=== PATIENT | female | born 1975 | race Caucasian/White ===

== ENCOUNTER 2016-07-25 15:14 | Emergency (ER) | payer MEDICAID, OTHER ==
[2016-07-25 15:20] VITALS: BP 142/79
[2016-07-25] MEDS ORDERED: KETOROLAC TROMETHAMINE 60 MG/2 ML VIAL IM ONE ×2 (15:27→15:30)
--- NOTE | 2016-07-25 15:43 | ERNOTE ---
ENT HPI Date of Service: 07/25/16 Presenting Symptoms: dental pain Time Seen by Provider: 07/25/16 15:18 Source: patient Exam Limitations: no limitations - Immun/Allergies/Home Medications Immunizations: IMMUNIZATION HX Immunizations Up to Date Yes History of Influenza Vaccine Yes Hx Pneumococcal Vaccination No Allergies/Adverse Reactions: Allergies Allergy/AdvReac Type Severity Reaction Status Date / Time No Known Allergies Allergy Verified 07/25/16 15:20 Home Medications: HOME MEDICATIONS FLUoxetine HCL [Prozac] 40 mg PO DAILY 03/02/16 [Last Taken Unknown] - History of Present Illness Narrative: 40-year-old female presenting to the emergency room for dental pain. Patient states she has pain on the right side and the left side. Patient states that she is going to the dentist on . Patient states that she ran out of pain medication. Date (Duration): 07/25/16 Severity: Present: mild ENT Location: Present: dental Prearrival Treatment: Present: over the counter meds - took 800mg of motrin at 8am, prescription meds Modifying Factors - Improves: Reports: medication Modifying Factors - Worsens: Reports: activity Associated Symptoms - ENT: Reports: tooth pain. Denies: fever, poor fluid intake, voice change, sore throat, nasal congestion/drainage, facial pain/ swelling Prior Treament: Reports: treated by physician - 07/19 given abx at [facility] and pain medication Review of Systems - Review of Systems Constitutional: Present: See HPI. Absent: fever, chills EYE: Present: no symptoms reported ENT: Present: See HPI. Absent: ear pain, nose pain, nasal drainage, sore throat , throat swelling Respiratory: Present: no symptoms reported Cardiology: Present: no symptoms reported Gastrointestinal/Abdominal: Present: no symptoms reported Genitourinary: Present: no symptoms reported Musculoskeletal: Present: no symptoms reported Skin: Present: no symptoms reported Neurological: Present: no symptoms reported Endocrine: Present: no symptoms reported Hematologic/Lymphatic: Present: no symptoms reported Psych: Present: no symptoms reported - Patient's Past Medical History Patient History - Medical: Anxiety, Depression, Migraines Patient History - Cardiac/Respiratory: No pertinent hx Patient History - Cancer: No Hx of Cancer Patient History - Surgical Procedures: , Tubal Ligation, Other - Social History Living Situations: other Abuse History: No History of abuse Psych History: Hx of Anxiety, Hx of Depression Smoking Status: Current every day smoker Have you smoked in the past 12 months: Yes Alcohol Use: none Drug Use: none - Immunizations Immunizations Up to Date: Yes Hx Pneumococcal Vaccination: No History of Influenza Vaccine: Yes Physical Exam - Physical Exam Narrative: when this provider entered room patient was holding the left side of her face. patient has dental caries on right back molar. no reddness or swelling observed. General Appearance: Present: wd/wn, alert, no apparent distress Eye Exam: Normal inspection: bilateral Ears, Nose, Throat: Present: normal ENT inspection. Absent: nasal congestion, sinus pain/drainage, pharyngeal erythema, pharyngeal swelling, tonsillar exudate , tonsillar swelling Neck: Present: normal inspection, full range of motion Respiratory: Present: no respiratory distress Cardiovascular/Chest: Present: regular rate, rhythm Gastrointestinal/Abdominal: Present: normal bowel sounds Neurological Exam: Present: alert, oriented, normal mood/affect Skin Exam: Present: normal color Lymphatic Exam: Present: no adenopathy ED Progress - Vital Signs Patient's Vital Signs:: I have reviewed the patient's vital signs. Vital Signs: Vital Signs 07/25/16 15:17 Temperature 36.1 C L Pulse Rate 81 Respiratory 14 Rate Blood Pressure 142/79 O2 Sat by Pulse 100 Oximetry WNL - Progress/Reassessment Chief Complaint: Dental Problem Progress:: Improved Plan - Plan Plan: FOOD ANALYST was checked. Patient was prescribed 20 tabs of Tramadol 5 days ago. Patient denied this and changed her recollection of the pain medication prescription after she was shown her FOOD ANALYST report. Patient has had several pain medication prescriptions with in the last 30 days that are by different prescribers. Patient stated she completed an antibiotic course 2 days ago and that she has a dental apt on . patient encouraged to go to her scheduled apt and to take her pain medication and OTC pain medication as directed. Departure Clinical Impression: Tooth caries - Departure Disposition: Home Follow Up Needed Condition: Stable Instructions: Dental Care and Dentist Visits, Dental Caries, Diet and Dental Disease Additional Instructions: Follow up with your dental appointment on . Continue to take PRN pain medications as prescribed. Return to the emergency room if symptoms persist or you develop fever, signs and symptoms of infection or symptoms are not able to be controlled with your prescribed medication. Referrals: Annie Guevara ARNP [Primary Care Provider] -
== END 2016-07-25 15:48 | disposition home or self-care (01) ==
LOC: ER 15:14
DX: K02.9 Dental caries, unspecified (principal); Z72.0 Tobacco use; F41.8 Other specified anxiety disorders

== ENCOUNTER 2016-08-12 16:29 | Emergency (ER) | payer OTHER ==
[2016-08-12] MEDS ORDERED: METHYLPREDNISOLONE SOD SUCC/PF 40 MG/ML VIAL IM ONE (18:04)
[2016-08-12] MEDS ORDERED: hydrOXYzine PAMOATE 25 MG CAPSULE PO ONE (18:04)
[2016-08-12] MEDS ORDERED: LORATADINE 10 MG TABLET PO ONE (18:05)
[2016-08-12] MEDS ORDERED: FAMOTIDINE 20 MG TABLET PO ONE (18:07)
--- NOTE | 2016-08-12 18:09 | ERNOTE ---
Integumentary HPI - Narrative Date of Service: 08/12/16 - General Presenting Symptoms: insect bite, other - pruritis, history of hives--resolved Time Seen by Provider: 08/12/16 17:39 Source: patient Exam Limitations: no limitations - Immun/Allergies/Home Medications Immunizations: IMMUNIZATION HX Immunizations Up to Date Yes History of Influenza Vaccine Yes Hx Pneumococcal Vaccination No Allergies/Adverse Reactions: Allergies Allergy/AdvReac Type Severity Reaction Status Date / Time No Known Allergies Allergy Verified 07/25/16 15:20 Home Medications: HOME MEDICATIONS FLUoxetine HCL [Prozac] 40 mg PO DAILY 03/02/16 [Last Taken Unknown] EPINEPHrine [Epipen] 0.3 mg IM PRN #1 disp.syrin 08/12/16 [Last Taken Unknown] Loratadine [Claritin] 10 mg PO DAILY #30 tab 08/12/16 [Last Taken Unknown] Ranitidine HCl [Zantac] 150 mg PO BID #60 tab 08/12/16 [Last Taken Unknown] diphenhydrAMINE HCL [Benadryl] 50 mg PO 08/12/16 [Last Taken 08/12/16 15:50] predniSONE [Prednisone] 20 mg PO DAILY #5 tablet 08/12/16 [Last Taken Unknown] - Pain Pain Score: 0 - History of Present Illness Narrative: Patient is a 40 year old female who presents to the ED with complaints of rash. Patient states sudden onset of urticaria about 1530 this afternoon with intense pruritus. States she noticed a bug bite posterior patellar region that is raised with white head. Patient states she took Benadryl 50 mg orally 1545 with slight relief. States she is allergic to "everything" and normally carries Epi pen with her but ran out. Upon presentation, continues to itch yet no signs of urticaria. Denies SOB or respiratory difficulty yet complains of scratchy throat. Able to talk in full complete sentences. Date (Duration): 08/12/16 Time (Timing): 15:00 Location: Reports: generalized Quality: Reports: itching Severity: moderate Exposure: Reports: insect bite/spider Modifying Factors - (Improves): Reports: scratching Associated Symptoms: Reports: hives - per history, sore throat. Denies: blisters, rash, petechiae, change in skin texture, edema, fever, flushing, headache, nasal congestion, malaise Review of Systems - Review of Systems Constitutional: Absent: recent illness, fever, chills, diaphoresis, weakness, fatigue, malaise, weight loss EYE: Absent: eye pain, eye discharge, blurred vision, double vision, vision changes ENT: Present: no symptoms reported, sore throat. Absent: ear pain, ear discharge, pulling on ears, nose pain, nose congestion, nasal drainage, throat swelling Respiratory: Present: no symptoms reported. Absent: shortness of breath, cough , orthopnea, wheezing, stridor Cardiology: Absent: chest pain, palpitations, syncope, edema Gastrointestinal/Abdominal: Absent: nausea, vomiting, diarrhea Genitourinary: Present: no symptoms reported Musculoskeletal: Present: no symptoms reported Skin: Absent: rash, dryness Neurological: Present: no symptoms reported Endocrine: Present: no symptoms reported Hematologic/Lymphatic: Present: no symptoms reported Psych: Present: no symptoms reported - Patient's Past Medical History Patient History - Medical: Anxiety, Depression, Migraines Patient History - Cardiac/Respiratory: No pertinent hx Patient History - Cancer: No Hx of Cancer Patient History - Surgical Procedures: , Tubal Ligation, Other - Social History Living Situations: home Abuse History: No History of abuse Psych History: Hx of Anxiety, Hx of Depression Alcohol Use: none Drug Use: none - Immunizations Immunizations Up to Date: Yes Hx Pneumococcal Vaccination: No History of Influenza Vaccine: Yes Physical Exam - Physical Exam General Appearance: Present: wd/wn, alert, no apparent distress Eye Exam: Normal inspection: bilateral, PERRL: bilateral Ears, Nose, Throat: Present: normal ENT inspection, normal pharynx. Absent: nasal congestion, sinus pain/drainage, pharyngeal erythema, pharyngeal swelling , tonsillar exudate, tonsillar swelling, dry mucous membranes Neck: Present: normal inspection, nontender, supple, full range of motion Respiratory: Present: no respiratory distress, normal breath sounds, no accessory muscle use, chest nontender, lungs clear Cardiovascular/Chest: Present: regular rate, rhythm, no murmur, normal peripheral pulses Peripheral Pulses: N=norm/S=strong/W=weak/B=bound/A=absent: Radial (R): Normal, Radial (L): Normal Gastrointestinal/Abdominal: Present: normal bowel sounds, nontender, nondistended, soft, no organomegaly Rectal Exam: Present: deferred Back Exam: Present: normal inspection, normal range of motion, no CVA tenderness , no vertebral tenderness Extremity Exam: Present: normal inspection, non-tender, normal range of motion, no edema Neurological Exam: Present: alert, oriented, normal mood/affect, no motor/ sensory deficits Skin Exam: Present: normal color, warm/dry, other - insect bite behind right knee, raised with white head. Absent: diaphoresis, cyanosis Lymphatic Exam: Present: no adenopathy ED Progress - Vital Signs Patient's Vital Signs:: I have reviewed the patient's vital signs. Vital Signs: Vital Signs 08/12/16 17:32 Temperature 36.3 C L Pulse Rate 82 Respiratory 12 Rate Blood Pressure 119/65 O2 Sat by Pulse 97 Oximetry - Progress/Reassessment Chief Complaint: Rash Progress:: Improved Progress Note-Subjective: 08/12/16 19:03 Patient improved upon discharge. States scratchiness in throat had lessened. States pruritus has lessened as well. Denies SOB or pain Departure Clinical Impression: Pruritus, Systemic reaction to insect sting - Departure Disposition: Home Follow Up Needed Condition: Good Instructions: Pruritus, Insect Bite Additional Instructions: Always carry Epi pen and contact physician for refill when used! Begin Prednisone tomorrow x 3 days. Claritin daily for allergies. Call your provider Sunday for follow up appointment. Return with worsening throat irritation, shortness of breath, difficulty talking or chest pain Referrals: Annie Guevara ARNP [Primary Care Provider] - Prescriptions: EPINEPHrine [Epipen] 0.3 mg IM PRN #1 disp.syrin Loratadine [Claritin] 10 mg PO DAILY #30 tab Ranitidine HCl [Zantac] 150 mg PO BID #60 tab predniSONE [Prednisone] 20 mg PO DAILY #5 tablet
[2016-08-12] MEDS ORDERED: LORATADINE 10 MG TABLET ONE (18:13)
[2016-08-12] MEDS ORDERED: METHYLPREDNISOLONE SOD SUCC/PF 40 MG/ML VIAL ONE (18:13)
[2016-08-12] MEDS ORDERED: FAMOTIDINE 20 MG TABLET ONE (18:13)
[2016-08-12] MEDS ORDERED: hydrOXYzine PAMOATE 25 MG CAPSULE ONE (18:14)
[2016-08-12 20:32] VITALS: BP 110/62
== END 2016-08-12 19:12 | disposition home or self-care (01) ==
LOC: ER 16:29
DX: L29.9 Pruritus, unspecified (principal); T63.481A Toxic effect of venom of other arthropod, accidental (unintentional), initial encounter

== ENCOUNTER 2016-10-08 13:09 | Emergency (ER) | payer OTHER ==
[2016-10-08 13:34] LABS: Hematocrit 37.5 % (37.0-47.0); Hemoglobin 12.5 gm/dL (12.5-16.0); Mean Cell Volume 89.5 fl (78-100); Mean Corpuscular Hemoglobin 29.8 pg (27-31); Mean Corpuscular Hgb Conc 33.3 g/dl (32-36); Mean Platelet Volume 10.5 fl (6.0-9.5); Neutrophil # 6.4 K/mm3 (1.3-6.0); Neutrophil % 71.3 % (42-75.0); Platelet Count 262 K/mm3 (150-450); Red Blood Count 4.19 M/mm3 (4.2-5.4)
[2016-10-08] MEDS ORDERED: IBUPROFEN 600 MG TABLET PO ONE (13:34)
[2016-10-08] MEDS ORDERED: ALBUTEROL SULFATE 2.5 MG/3 ML VIAL.NEB IH ONE (13:34)
[2016-10-08] MEDS ORDERED: ALBUTEROL SULFATE 2.5 MG/0.5 ML VIAL.NEB IH ONE (13:36)
[2016-10-08 13:44] LABS: Prothrombin Time (Patient) 11.4 Seconds (9.4-11.4)
[2016-10-08 13:45] LABS: INR 1.1 INR (0.90-1.10); Partial Thrombolplastin Time 27.1 Seconds (24-32)
--- NOTE | 2016-10-08 13:47 | ERNOTE ---
Chest Pain/Cardiac HPI Chief Complaint: Abdominal Pain Time Seen by Provider: 10/08/16 13:17 Source: patient Exam Limitations: no limitations Immunizations: IMMUNIZATION HX Immunizations Up to Date Yes History of Influenza Vaccine Yes Hx Pneumococcal Vaccination No Allergies/Adverse Reactions: Allergies bee pollen Allergy (Severe, Verified 10/08/16 13:33) Anaphylaxis Home Medications: HOME MEDICATIONS FLUoxetine HCL [Prozac] 40 mg PO DAILY 03/02/16 [Last Taken Unknown] Loratadine [Claritin] 10 mg PO DAILY #30 tab 08/12/16 [Last Taken Unknown] Ranitidine HCl [Zantac] 150 mg PO BID #60 tab 08/12/16 [Last Taken Unknown] diphenhydrAMINE HCL [Benadryl] 50 mg PO 08/12/16 [Last Taken 08/12/16 15:50] Acetaminophen [Extra Strength Non-Aspirin] 1,000 mg PO 10/08/16 [Last Taken 09:30] Albuterol Sulfate [Proair Hfa] 2 puff IH Q4H PRN #1 inhaler 10/08/16 [Last Taken Unknown] Amoxicillin 500 mg PO TID 10/08/16 [Last Taken 10/08/16 09:00] EPINEPHrine [Epipen] 0.3 mg IM PRN PRN 10/08/16 [Last Taken Unknown] Narrative: Patient started to have URI symptoms two days ago, was seen in [place] and started on amoxicillin for pharyngitis, took two doses yesterday and one this morning. Today at 10:00 she started to have lower left chest pain while sitting on the couch, no radiation, no other new associated symptoms. The pain waxes and wanes, worse with movement, deep breath and cough. Date (Duration): 10/08/16 Time (Timing): 10:00 Severity/Quality: moderate, sharp Location: epigastric, left chest Chest Pain Radiation: no radiation Activities at Onset: none, rest Modifying Factors - Worsens: Present: breathing, coughing, movement Nitro Today/Relief: no nitro taken today Aspirin Treatment Today: no aspirin today Prior Treatment: Reports: recently seen, currently on antibiotics Review of Systems - Review of Systems Constitutional: Present: chills. Absent: recent illness, fever ENT: Present: nose congestion, sore throat - able to swallow. Absent: throat swelling Respiratory: Present: shortness of breath, cough Cardiology: Present: chest pain. Absent: palpitations Gastrointestinal/Abdominal: Absent: nausea, vomiting, diarrhea, abdominal pain Genitourinary: Present: no symptoms reported Musculoskeletal: Present: no symptoms reported Skin: Absent: rash Neurological: Present: headache, tingling - both hands. Absent: weakness, numbness - Patient's Past Medical History Patient History - Medical: Anxiety, Depression, GERD, Migraines Patient History - Cardiac/Respiratory: No pertinent hx Patient History - Cancer: No Hx of Cancer Patient History - Surgical Procedures: , Tubal Ligation, Other Patient History - Other: None - Family History Mother Family History - Cardiac/Respiratory: Myocardial Infarction - Social History Living Situations: home Abuse History: No History of abuse Psych History: Hx of Anxiety, Hx of Depression Does anyone smoke in the home?: Yes - Smoking Status: Former smoker Alcohol Use: none Drug Use: none - Immunizations Immunizations Up to Date: Yes Hx Pneumococcal Vaccination: No History of Influenza Vaccine: Yes Physical Exam - Physical Exam General Appearance: Present: wd/wn, alert, no apparent distress, anxious Eye Exam: Normal inspection: bilateral, PERRL: bilateral Ears, Nose, Throat: Present: normal except -, nasal congestion Neck: Present: normal inspection. Absent: lymphadenopathy (R), lymphadenopathy (L) Respiratory: Present: no respiratory distress, no accessory muscle use, lungs clear, chest tenderness - left lower parasternal ( area of reported pain), decreased breath sounds Cardiovascular/Chest: Present: regular rate, rhythm, no murmur Gastrointestinal/Abdominal: Present: normal bowel sounds, nondistended, soft, tenderness - left upper abdomen on deep palpation Extremity Exam: Present: no edema Neurological Exam: Present: alert, oriented, normal mood/affect Skin Exam: Present: normal color, warm/dry ED Progress - Results and Orders Patient's Lab Results:: I have reviewed the patient's lab results. - Vital Signs Patient's Vital Signs:: I have reviewed the patient's vital signs. Vital Signs: Vital Signs 10/08/16 13:12 Temperature 36.2 C L Pulse Rate 79 Respiratory 16 Rate Blood Pressure 109/49 O2 Sat by Pulse 98 Oximetry - EKG EKG: NSR, RBBB - incomplete, unchanged from 09/2015 EKG read: Interp. by me - X-Ray X-Ray #1 X-Ray: chest - no acute changes Interpretation: Interp. by me - Progress/Reassessment Chief Complaint: Abdominal Pain Progress Note-Subjective: 10/08/16 15:01 patient is feeling better after ibuprofen and albuterol, discussed test results and diagnosis reviewed the chart from [facility], strep test negative Departure - Departure Clinical Impression: Costochondritis, acute Upper respiratory infection Qualifiers: URI type: unspecified viral URI Qualified Code(s): J06.9 - Acute upper respiratory infection, unspecified; B97.89 - Other viral agents as the cause of diseases classified elsewhere Disposition: Home self-care Condition: Good Instructions: Acute Bronchitis, [id number], Costochondritis, [id number], Form - Excuse from Work, School, or Physical Activity Additional Instructions: call your doctor for follow up Prescriptions: Albuterol Sulfate [Proair Hfa] 2 puff IH Q4H PRN #1 inhaler PRN Reason: Shortness Of Breath
[2016-10-08 13:51] LABS: ALT 25 U/L (19-67); AST 16 U/L (0-48); Albumin * 3.5 gm/dl (3.4-5.0); Alkaline Phosphatase * 47 U/L (50-170); Amylase * 36 U/L (25-115); Anion Gap 10.6 mmol/L (6.8-13.8); BUN/Creatinine Ratio 11.1 (9.0-21.6); Bilirubin, Total 0.7 mg/dL (0.0-1.1); Blood Urea Nitrogen 9 mg/dL (3-23); Ca. Corrected For Albumin 8.8 mg/dL (8.4-10.2); Calcium * 8.7 mg/dL (7.9-10.9); Carbon Dioxide 25.9 mmol/L (24-32.6); Chloride 102 mmol/L (97-106); Glucose * 113 mg/dL (70-110); Lipase 86 U/L (73-393); Potassium 3.5 mmol/L (3.4-4.6); Sodium 135 mmol/L (132-142); Total Protein 7.2 gm/dL (6.2-8.2); Troponin I Less than 0.017 ng/ml (0.00-0.10)
[2016-10-08 15:16] VITALS: BP 119/62
== END 2016-10-08 15:11 | disposition home or self-care (01) ==
LOC: ER 13:09
DX: M94.0 Chondrocostal junction syndrome [Tietze] (principal); J06.9 Acute upper respiratory infection, unspecified; B97.89 Other viral agents as the cause of diseases classified elsewhere; K21.9 Gastro-esophageal reflux disease without esophagitis; F32.9 Major depressive disorder, single episode, unspecified; Z87.891 Personal history of nicotine dependence

== ENCOUNTER 2017-01-26 14:28 | Emergency (ER) | payer OTHER ==
[2017-01-26 14:35] VITALS: BP 105/58
--- NOTE | 2017-01-26 15:07 | ERNOTE ---
ENT HPI Date of Service: 01/26/17 Presenting Symptoms: other - Sore throat Time Seen by Provider: 01/26/17 14:45 Source: patient, RN notes reviewed Exam Limitations: no limitations - Immun/Allergies/Home Medications Immunizations: IMMUNIZATION HX Immunizations Up to Date Yes History of Influenza Vaccine Yes Hx Pneumococcal Vaccination No Allergies/Adverse Reactions: Allergies Allergy/AdvReac Type Severity Reaction Status Date / Time bee pollen Allergy Severe Anaphylaxis Verified 01/26/17 14:35 Home Medications: HOME MEDICATIONS FLUoxetine HCL [Prozac] 40 mg PO DAILY 03/02/16 [Last Taken Unknown] Loratadine [Claritin] 10 mg PO DAILY #30 tab 08/12/16 [Last Taken Unknown] Ranitidine HCl [Zantac] 150 mg PO BID #60 tab 08/12/16 [Last Taken Unknown] Albuterol Sulfate [Proair Hfa] 2 puff IH Q4H PRN #1 inhaler 10/08/16 [Last Taken Unknown] EPINEPHrine [Epipen] 0.3 mg IM PRN PRN 10/08/16 [Last Taken Unknown] Amox Tr/Potassium Clavulanate [Augmentin 875-125 Tablet] 875 mg PO Q12H #20 tab 01/26/17 [Last Taken Unknown] - History of Present Illness Narrative: 41 year old female presents with a sore throat, sinus congestion and cough that began 2 days ago. She was sent home from work today because she had a fever of 101.6. She works at a long term with chronic ventilator patients. She has a history of chronic sinusitis and had a sinus surgery approximately 5 years ago. She took DayQuil earlier today. ENT Location: Present: facial, throat Prearrival Treatment: Present: over the counter meds Associated Symptoms - ENT: Reports: fever, malaise, cough, voice change, sore throat, nasal congestion/drainage, facial pain/swelling, tooth pain, change in hearing, headache. Denies: poor fluid intake, poor solid intake, ear drainage Prior Treament: Reports: similar symptoms before. Denies: recently seen Review of Systems - Review of Systems Constitutional: Present: See HPI EYE: Absent: eye pain, eye discharge ENT: Present: See HPI Respiratory: Absent: shortness of breath, wheezing Cardiology: Present: no symptoms reported Gastrointestinal/Abdominal: Present: nausea. Absent: vomiting, diarrhea Genitourinary: Present: no symptoms reported Musculoskeletal: Present: muscle pain. Absent: neck pain Skin: Absent: rash, lesions Neurological: Present: headache. Absent: dizziness/light-headedness Endocrine: Present: no symptoms reported Hematologic/Lymphatic: Present: no symptoms reported Psych: Present: no symptoms reported - Patient's Past Medical History Patient History - Medical: Anxiety, Depression, GERD, Migraines Patient History - Cardiac/Respiratory: No pertinent hx Patient History - Cancer: No Hx of Cancer Patient History - Surgical Procedures: , Tubal Ligation, Other, ENT Patient History - Other: None LMP (females 10-50): 3 weeks - Family History Mother Family History - Cardiac/Respiratory: Myocardial Infarction - Social History Living Situations: home Abuse History: No History of abuse Psych History: Hx of Anxiety, Hx of Depression Smoking Status: Current every day smoker Alcohol Use: none Drug Use: none - Immunizations Immunizations Up to Date: Yes Hx Pneumococcal Vaccination: No History of Influenza Vaccine: Yes Physical Exam - Physical Exam General Appearance: Present: wd/wn, alert, no apparent distress, other - Appears uncomfortable Head Exam: Present: tenderness - Maxillary sinuses bilaterally. Absent: swelling Eye Exam: Normal inspection: bilateral Ears, Nose, Throat: Present: nasal congestion, sinus pain/drainage, pharyngeal erythema, tonsillar exudate, tonsillar swelling. Absent: abnormal TM (R), abnormal TM (L) Neck: Present: lymphadenopathy (R), lymphadenopathy (L), tender lateral Respiratory: Present: no respiratory distress, normal breath sounds, no accessory muscle use, lungs clear Cardiovascular/Chest: Present: regular rate, rhythm, no murmur Extremity Exam: Present: normal inspection, no edema Neurological Exam: Present: alert, oriented, normal mood/affect, no motor/ sensory deficits Skin Exam: Present: normal color, warm/dry ED Progress - Results and Orders Patient's Lab Results:: I have reviewed the patient's lab results. - Vital Signs Patient's Vital Signs:: I have reviewed the patient's vital signs. Vital Signs: Vital Signs 01/26/17 14:31 Temperature 36.4 C L Pulse Rate 88 Respiratory 12 Rate Blood Pressure 105/58 O2 Sat by Pulse 97 Oximetry - Progress/Reassessment Chief Complaint: Sore Throat Progress:: Unchanged Departure Clinical Impression: Sinusitis, acute Qualifiers: Sinusitis location: unspecified location Recurrence: not specified as recurrent Qualified Code(s): J01.90 - Acute sinusitis, unspecified - Departure Disposition: Home self-care Condition: Good Instructions: Sinusitis, Adult, [id number], Form - Excuse from Work, School, or Physical Activity Referrals: Annie Guevara ARNP [Primary Care Provider] - Prescriptions: Amox Tr/Potassium Clavulanate [Augmentin 875-125 Tablet] 875 mg PO Q12H #20 tab
== END 2017-01-26 15:07 | disposition home or self-care (01) ==
LOC: ER 14:28
DX: J01.90 Acute sinusitis, unspecified (principal); K21.9 Gastro-esophageal reflux disease without esophagitis; F41.8 Other specified anxiety disorders; F17.200 Nicotine dependence, unspecified, uncomplicated